=== PATIENT | male | born 1975 | race Caucasian/White ===

== ENCOUNTER 2022-05-01 09:41 | Outpatient (CLI) | payer BC | END 2022-05-01 09:42 | disposition home or self-care (01) | LOC: RAD 09:41 | PROVIDERS: ATTEND Internal Medicine | DX: Z02.71 Encounter for disability determination (principal); M47.816 Spondylosis without myelopathy or radiculopathy, lumbar region; M17.11 Unilateral primary osteoarthritis, right knee; M11.261 Other chondrocalcinosis, right knee | CPT/HCPCS: 72100 ==